=== PATIENT | male | born 1990 | race Caucasian/White ===

== ENCOUNTER 2020-04-05 17:47 | Emergency (ER) | payer BC, SELFPAY ==
[2020-04-05 17:53] VITALS: BP 134/72; PULSE 70; RESP 20; TEMP 36.8; O2SAT 99; BMI 34.9
--- NOTE | 2020-04-05 17:57 | CT_ITS ---
PROCEDURE: CT LUMBAR SPINE WO CON CLINICAL HISTORY: pain midline L1 down Low back pain. Injury with pain COMPARISON: No exams were available for comparison TECHNIQUE: Axial images obtained with sagittal and coronal reformats. All CT scans at the facility use one or more dose reduction, viz: automated exposure control, ma/kV adjustment per patient size (including targeted exams where dose is matched to indication, i.e. head), or iterative reconstruction technique. FINDINGS: There is normal alignment. There is mild acute wedge compression fracture T12 inferior endplate. The superior endplate is not included on the images. No obvious retropulsion. There is loss of height anteriorly of T12 of approximately 25-30 percent as seen on the sports therapist view. L1-L2: Unremarkable. L2-L3: Bulging disc. L3-L4: Mild bulging disc with facet ligamentum hypertrophy. L4-5: Bulging disc with facet ligamentum hypertrophy with canal stenosis with bilateral lateral recess narrowing. L5-S1: Mild bulging disc. IMPRESSION: 1. Acute compression fracture of the inferior endplate of T12 with loss of height anteriorly of approximately 30 percent and no obvious retropulsion. MRI may provide further evaluation. 2. Bulging disc at from L2-S1 with facet hypertrophy with canal stenosis at L4-5. Dictated by: Doc Jesus MD 04/06/2020 06:34 Doc Jesus MD in [place] 04/06/2020 06:34
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
[2020-04-05 18:49] VITALS: BP 129/80; PULSE 96; RESP 18; TEMP 36.7; O2SAT 100
== END 2020-04-05 18:53 | disposition home or self-care (01) ==
PROVIDERS: Emergency Provider Emergency Medicine; PCP Internal Medicine
DX: S32.018A Other fracture of first lumbar vertebra, initial encounter for closed fracture (principal); W30.89XA Contact with other specified agricultural machinery, initial encounter; Y92.017 Garden or yard in single-family (private) house as the place of occurrence of the external cause; Z88.0 Allergy status to penicillin
CPT/HCPCS: 72131; 96372; 99282

== ENCOUNTER 2021-01-28 22:47 | Emergency (ER) | payer BC, SELFPAY ==
[2021-01-28 22:48] VITALS: BP 155/83; PULSE 73; RESP 18; TEMP 36.9; O2SAT 97; BMI 30.4
--- NOTE | 2021-01-28 22:58 | CT_ITS ---
PROCEDURE INFORMATION: Exam: CT Abdomen And Pelvis With Contrast Exam date and time: 01/28/2021 10:58 PM Age: 30 years old Clinical indication: Vomiting and other: Diarrhea; Abdominal pain; Localized; Right; Patient HX: Ruq painwith v/d for 1 week TECHNIQUE: Imaging protocol: Computed tomography of the abdomen and pelvis with contrast. Radiation optimization: All CT scans at this facility use at least one of these dose optimization techniques: automated exposure control; mA and/or kV adjustment per patient size (includes targeted exams where dose is matched to clinical indication); or iterative reconstruction. Contrast material: ISOVUE; Contrast volume: 75 ml; Contrast route: IV; COMPARISON: CR PELAP PELVIS AP ONLY 01/11/2015 4:28 PM FINDINGS: Liver: Normal. Gallbladder and bile ducts: Normal. Pancreas: Normal. Spleen: Splenic calcifications, compatible with prior granulomatous disease. Adrenal glands: Normal. No mass. Kidneys and ureters: Simple right renal cyst, for which no further evaluation is necessary. Stomach and bowel: Few loops of nondilated, gas and fluid-filled small bowel, which is a nonspecific finding, but can be seen with enteritis. Appendix: Appendix normal. Intraperitoneal space: Unremarkable. No free air. No significant fluid collection. Vasculature: Unremarkable. No abdominal aortic aneurysm. Lymph nodes: Unremarkable. No enlarged lymph nodes. Urinary bladder: Unremarkable as visualized. Reproductive: Unremarkable as visualized. Bones/joints: No acute abnormality. Soft tissues: Normal. IMPRESSION: Few loops of nondilated, gas and fluid-filled small bowel, which is a nonspecific finding, but can be seen with enteritis. COMMENTS: Consistent with the [employer]'s Incidental Findings Committee white paper (J Am Talib Radiol 2018): Any incidental renal lesion less than 1 cm or classified as too small to characterize, or any incidental cystic renal lesion characterized as simple-appearing, is likely benign. No follow-up imaging is recommended for these lesions per consensus recommendations based on imaging criteria.
[2021-01-28 23:00] VITALS: BP 161/81; PULSE 77; O2SAT 97
[2021-01-28 23:05] LABS: Basophils % 0.5 % (0.1-2.0); Eosinophils # 0.1 K/mm3 (0.0-0.4); Eosinophils % 1.7 % (0.1-12.0); Hematocrit 46.7 % (42.0-52.0); Hemoglobin 15.8 g/dL (14.1-18.0); Lymphocytes # 1.4 K/mm3 (0.7-4.5); Lymphocytes % 20.7 % (10-50); Mean Corpuscular HGB Conc 33.9 g/dL (31.8-35.4); Mean Corpuscular Hemoglobin 26.8 pg (27.0-31.2); Mean Corpuscular Volume 79.2 fl (80-94); Monocytes # 0.6 K/mm3 (0.1-1.0); Monocytes % 9.6 % (1.7-9.3); Neutrophils # 4.4 K/mm3 (1.8-7.8); Neutrophils % 67.5 % (37.0-80.0); Platelet Count 162 K/mm3 (142-424); Red Blood Count 5.89 M/mm3 (4.60-6.20); Red Cell Distribution Width 13.9 % (11.5-17.5); White Blood Count 6.5 K/mm3 (4.8-10.8)
[2021-01-28 23:10] LABS: Alanine Aminotransferase 29 U/L (12-78); Albumin Level 4.5 g/dl (3.5-5.0); Albumin/Globulin Ratio 1.6 (1.1-1.8); Alkaline Phosphatase 90 U/L (38-126); Amylase 42 U/L (30-110); Anion Gap 11.3 mEq/L (5-15); Aspartate Amino Transferase 39 U/L (17-59); Bilirubin,Total 0.7 mg/dl (0.2-1.3); Blood Urea Nitrogen 17 mg/dl (9-20); Calcium 8.7 mg/dl (8.4-10.2); Carbon Dioxide 28 mmol/L (22.0-30.0); Chloride 103 mmol/L (98-107); Creatinine Clearance Estimated 144 mL/min (50-200); Estimated Glomerular Filt Rate 71 ml/min (>60); GFR (African American) 86 ML/MIN (>60); Globulin 2.9 g/dL (1.3-3.2); Glucose 94 mg/dl (74-100); Lipase 67 U/L (23-300); Potassium 3.3 mmoL/L (3.5-5.1); Sodium 139 mmol/L (136-145); Total Protein,Serum 7.4 g/dl (6.3-8.2)
[2021-01-28 23:16] LABS: C-Reactive Protein 12.7 mg/L (0-4)
--- NOTE | 2021-01-28 23:20 | HMH.EDNVD ---
ED Disposition Clinical Impression: Enteritis Disposition: Home, Self-Care Condition on Discharge: Good Instructions: DI for Acute Abdominal Pain Additional Instructions: fluids and see pcp for follow up Referrals: Van Aldana [Primary Care Provider] - Forms: Work/School Release - Critical Care Critical Care Time: No Attestation: On 01/28/21, the high probability of a clinically significant, sudden or life threatening deterioration of the following system(s) required my full and direct attention, intervention and personal management. The time I documented below is in addition to time spent performing reported procedures but includes the following listed in this critical care notation. Medical Decision Making - Medical Records Medical records reviewed: Yes: I reviewed the patient's medical records. - Allen Inquiry Pt receiving controlled substance: No Vital Signs: 01/28/21 22:48 01/28/21 23:00 01/28/21 23:53 Temperature 98.4 F Temperature Source Oral Pulse Rate 77 67 Pulse Rate [Right] 73 Respiratory Rate 18 Blood Pressure 161/81 H 125/63 Blood Pressure [Right Arm] 155/83 H Blood Pressure Mean [Right Arm] 107 Blood Pressure Source Automatic Cuff Blood Pressure Position Supine 02 Sat by Pulse Oximetry 97 97 96 Oxygen Delivery Method Room Air 01/29/21 00:30 01/29/21 00:45 01/29/21 01:00 Temperature Temperature Source Pulse Rate 62 71 67 Pulse Rate [Right] Respiratory Rate Blood Pressure 126/58 L 122/75 131/66 Blood Pressure [Right Arm] Blood Pressure Mean [Right Arm] Blood Pressure Source Blood Pressure Position 02 Sat by Pulse Oximetry 95 97 96 Oxygen Delivery Method - Lab Data Lab results reviewed: Yes: I reviewed the patient's lab results. Lab Results 01/28/21 22:50: WBC 6.5, RBC 5.89, Hgb 15.8, Hct 46.7, MCV 79.2 L, MCH 26.8 L, MCHC 33.9, RDW 13.9, Plt Count 162, MPV 7.0 L, Neut % (Auto) 67.5, Lymph % (Auto) 20.7, Fisher % (Auto) 9.6 H, Eos % (Auto) 1.7, Baso % (Auto) 0.5, Neut # (Auto) 4.4, Lymph # (Auto) 1.4, Fisher # (Auto) 0.6, Eos # (Auto) 0.1, Baso # (Auto) 0.0 01/28/21 22:50: Sodium 139, Potassium 3.3 L, Chloride 103, Carbon Dioxide 28, Anion Gap 11.3, BUN 17, Creatinine 1.20, Estimated Creat Clear 144, Estimated GFR 71, Est GFR ( Amer) 86, Glucose 94, Calcium 8.7, Total Bilirubin 0.7, AST 39, ALT 29, Alkaline Phosphatase 90, C-Reactive Protein 12.7 H, Total Protein 7.4, Albumin 4.5, Globulin 2.9, Albumin/Globulin Ratio 1.6, Amylase 42, Lipase 67 01/28/21 22:50: ESR 4 01/28/21 22:50: Procalcitonin 0.135 Result diagrams: 01/28/21 22:50 01/28/21 22:50 Orders (Tests/Meds): ED MEDICATIONS Generic Name Dose Route Start Last Admin Trade Name Freq PRN Reason Stop Dose Admin Sodium Chloride 1,000 mls @ 999 mls/hr 01/28/21 23:00 01/28/21 23:02 Sod Chlor 0.9% 1000ml Bag IV 01/29/21 00:00 999 mls/hr .Q1H1M AKASH Administration Sodium Chloride 8 ml 01/28/21 22:59 Sodium Chloride 0.9% 10ml Vial IV 02/27/21 22:58 NEEDED PRN dilute pepcid Discontinued Medications Generic Name Dose Route Start Last Admin Trade Name Freq PRN Reason Stop Dose Admin Famotidine 20 mg 01/28/21 22:59 01/28/21 23:02 Famotidine 20mg/2ml Vial IV 01/28/21 23:00 20 mg ONCE ONE Administration Iopamidol 75 ml 01/28/21 23:47 01/28/21 23:47 Iopamidol-370 (76%);100ml Bottle IV 01/28/21 23:48 75 ml ONCE ONE Administration Ketorolac Tromethamine 30 mg 01/28/21 23:03 01/28/21 23:05 Ketorolac 30mg/Ml Vial IV 01/28/21 23:04 30 mg ONCE ONE Administration Metoclopramide HCl 10 mg 01/28/21 22:59 01/28/21 23:02 Metoclopramide Hcl 10mg/2ml Vial IVP 01/28/21 23:00 10 mg ONCE ONE Administration Ondansetron HCl 4 mg 01/28/21 22:59 01/28/21 23:02 Ondansetron 4mg/2ml Vial IV 01/28/21 23:00 4 mg ONCE ONE Administration Promethazine HCl 25 mg 01/28/21 23:19 01/28/21 23:40 Prome
[2021-01-28 23:29] LABS: Procalcitonin 0.135 ng/mL (0.0-2.0)
[2021-01-28 23:33] LABS: Erythrocyte Sedimentation Rate 4 mm/hr (0-15)
[2021-01-28 23:53] VITALS: BP 125/63; PULSE 67; O2SAT 96
[2021-01-29 00:30] VITALS: BP 126/58; PULSE 62; O2SAT 95
[2021-01-29 00:45] VITALS: BP 122/75; PULSE 71; O2SAT 97
[2021-01-29 01:00] VITALS: BP 131/66; PULSE 67; O2SAT 96
[2021-01-29 01:48] VITALS: BP 124/78; PULSE 71; RESP 16; TEMP 36.7; O2SAT 97
== END 2021-01-29 01:49 | disposition home or self-care (01) ==
PROVIDERS: Emergency Provider Emergency Medicine; PCP Internal Medicine
DX: K52.9 Noninfective gastroenteritis and colitis, unspecified (principal); F17.210 Nicotine dependence, cigarettes, uncomplicated
CPT/HCPCS: 74177; 80053; 82150; 83690; 84145; 85025; 85651; 86140; 96365; 96375; 99282; J2405; Q9967

== ENCOUNTER 2021-04-07 16:02 | Emergency (ER) | payer BC, SELFPAY ==
[2021-04-07 16:03] VITALS: BP 131/78; PULSE 84; RESP 16; TEMP 36.9; O2SAT 99; BMI 26.2
[2021-04-07 16:46] VITALS: BP 131/78; PULSE 84; RESP 16; TEMP 36.9; O2SAT 99
--- NOTE | 2021-05-27 11:14 | HMH.EDUTC ---
[facility] [place]: Rash Disposition: Home, Self-Care Condition on Discharge: Good Instructions: DI for Rash Additional Instructions: Keep the affected area clean and dry. Follow up with your regular doctor. Use the medication as directed. GO TO THE ER FOR ANY WORSENING SYMPTOMS Prescriptions: Clobetasol Propionate 1 applicatio TP BID 10 Days #1 tube Transmission Status: Received by [id number] methylPREDNISolone [Medrol] 4 mg PO DIRECTED 6 Days #21 tab.ds.pk Transmission Status: Received by [id number] Referrals: Dianne Nazario APRN [Primary Care Provider] - Time of Disposition: 18:00 Medical Decision Making - Medical Records Medical records reviewed: No: I reviewed the patient's medical records. - Allen Inquiry Pt receiving controlled substance: No Vital Signs: 04/07/21 16:03 04/07/21 16:46 Temperature 98.4 F 98.4 F Temperature Source Oral Oral Pulse Rate 84 Pulse Rate [Right] 84 Respiratory Rate 16 16 Blood Pressure 131/78 Blood Pressure [Right Arm] 131/78 Blood Pressure Mean [Right Arm] 95 02 Sat by Pulse Oximetry 99 [facility] [place] - General Stated complaint: RASH ON BACK Time Seen by Provider: 04/07/21 16:30 Description of Symptoms (Recalled from Triage Doc. by RN): rash on back HEENT Symptoms (Recalled from RN notes): No Resp Symptoms (Recalled from RN notes): No Skin Symptoms (Recalled from RN notes): Yes MS Symptoms (Recalled from RN notes): No Functional Status (Recalled from RN notes): na - History of Present Illness Provider Complaint: She is here with c/o of having a rash on her back. - Related Data Previous Rx's Medication Instructions Recorded Clobetasol Propionate 1 applicatio TP BID 10 Days #1 tube 04/07/21 methylPREDNISolone [Medrol] 4 mg PO DIRECTED 6 Days #21 04/07/21 tab.ds.pk Allergies Allergy/AdvReac Type Severity Reaction Status Date / Time Penicillins Allergy Verified 01/27/18 17:42 - Worker's Comp Is this a Worker's Comp case?: No [facility] History - Hepatitis A Screen Drug use history?: No High risk sexual behaviors?: No History of sexually transmitted infection?: No Currently employed?: No Childcare worker?: No Do you have indoor plumbing?: Yes Do you have electricity?: Yes Attestation statement:: This patient has been screened for Hepatitis A risk factors. I have reviewed the patient's past medical history: Yes Medical History: Denies:: Cancer, Diabetes Mellitus Type 1, Diabetes Mellitus Type 2, MRSA Laterality Cases: Bilateral: Tonsillectomy Amputation: No - Social History Smoking Status: Current every day smoker Tobacco Type: cigarettes Alcohol Intake: never Occupational Status: employed Housing: house ROS Obtained: Yes All systems reviewed & no additional complaints - Constitutional Constitutional: Denies chills, Denies fever(s) - Eyes Eyes: Denies eye discharge, Denies itchy eyes - ENT Ears, Nose, Mouth, and Throat: Denies dizziness, Denies otalgia, Denies sore throat - Cardiovascular Cardiovascular: Denies chest pain - Respiratory Respiratory: Denies chest congestion, Denies cough, Denies dyspnea, Denies stridor, Denies wheezing - Gastrointestinal Gastrointestingal: Denies: abdominal pain, diarrhea, nausea, vomiting - Musculoskeletal Musculoskeletal: Denies joint pain - Integumentary/Breasts Skin/Breast: Reports as per HPI, Reports rash Physical Exam - General General appearance: alert, in no apparent distress - Head Head exam: atraumatic, normocephalic, normal inspection - Eye Eye exam: Present: normal appearance, PERRL, EOMI - ENT ENT exam: Present: normal exam, normal oropharynx, mucous membranes moist, TM's normal bilaterally, normal external ear exam - Neck Neck exam: Present: normal inspection, full ROM, trachea midline. Absent: meningismus, lymphadenopathy - Chest Chest inspection: Present: normal inspection, symm
== END 2021-04-07 16:48 | disposition home or self-care (01) ==
LOC: UTC 16:06
PROVIDERS: Emergency Provider Nurse Practitioner Family; PCP Nurse Practitioner Family
DX: R21 Rash and other nonspecific skin eruption (principal)
CPT/HCPCS: 99202; G0463

== ENCOUNTER 2021-08-08 11:45 | Emergency (ER) | payer BC, SELFPAY ==
[2021-08-08 13:05] VITALS: BP 142/82; PULSE 101; RESP 18; TEMP 37.2; O2SAT 98; BMI 33.0
[2021-08-08 13:28] LABS: UTC Influenza A Antigen Negative (Negative); UTC Influenza B Antigen Negative (Negative)
--- NOTE | 2021-08-08 13:38 | HMH.EDUTC ---
[facility] – [place] Dis[place] Clinical Impression: Vomiting and diarrhea Disposition: Home, Self-Care Condition on Discharge: Good Instructions: Diarrhea, Nausea and Vomiting-Adult, Ondansetron, DI for COVID-19 (Suspected or Confirmed ), Preventing the Spread of Coronavirus Discharge Instructions Additional Instructions: Drink extra fluids with and between meals. If you have difficulty drinking, try very small amounts of water or suck on ice chips. ? Avoid fruit juices, as these do not replace minerals and can actually increase diarrhea. ? Children and adults can use sports drinks to replenish electrolytes. Younger children and infants should use products formulated for children, like oral rehydration solutions. ? Eat food in small amounts and let your stomach recover. ? Get lots of rest. You may feel tired or weak. ? No greasy or fried foods for the next 24-48 hours BRAT diet Bananas Rice Apples and Ozora ? Make sure to drink plenty of liquids ? Return if needed ? Straight to ER if any life threatening symptoms ? Zofran as prescribed ? You was given an outpatient order for diarrhea panel, please collect specimen and bring back to outpatient lab then call back to the [facility] or follow up with family doctor for results ? Follow up with family doctor in the next 48-72 hours if no improvement or any worsening of symptoms You were tested for today for Upper Respiratory panel with COVID19 your test result should be back in the next 24-48 hours, you Check your results on the [facility] [employer] [facility] for your COVID test results if you have trouble logging on you may call You was given a handout with instructions for Self Quarantine and Self isolation for while you wait on test results and what to do if they are positive If you are positive the Health Dept will be contacting you also Make sure to take your Vitamins Vit. C Vit D and Zinc if you can take them Prescriptions: Ondansetron [Zofran 4mg ODT] 4 mg PO TIDP PRN #20 tab PRN Reason: Nausea Transmission Status: Received by [id number] Referrals: Dianne Nazario APRN [Primary Care Provider] - As needed Forms: Work/School Release Medical Decision Making - Allen Inquiry Pt receiving controlled substance: No Allen was queried for this patient: No Vital Signs: 08/08/21 13:05 08/08/21 14:15 Temperature 99.0 F 99.0 F Temperature Source Oral Pulse Rate 101 H Pulse Rate [Right Brachial] 101 H Respiratory Rate 18 18 Blood Pressure 142/82 H Blood Pressure [Right Arm] 142/82 H Blood Pressure Mean [Right Arm] 102 Blood Pressure Source [Right Arm] Automatic Cuff Blood Pressure Position [Right Arm] Sitting 02 Sat by Pulse Oximetry 98 Oxygen Delivery Method Room Air - Lab Data Lab Results 08/08/21 13:05: Influenza Type A Ag Negative, Influenza Type B Ag Negative Orders (Tests/Meds): ED MEDICATIONS Discontinued Medications Generic Name Dose Route Start Last Admin Trade Name Freq PRN Reason Stop Dose Admin Ondansetron HCl 4 mg 08/08/21 13:45 08/08/21 13:50 Ondansetron 4mg Odt SL 08/08/21 13:46 4 mg ONCE ONE Administration [facility] [place] HPI - General Stated complaint: vomiting, diarrhea Time Seen by Provider: 08/08/21 13:38 Mode of Arrival: Ambulatory Source of Information: Patient Limitations: No Limitations Description of Symptoms (Recalled from Triage Doc. by RN): PATIENT C/O VOMITING, DIARRHEA, AND WEAKNESS SINCE 0300 THIS AM HEENT Symptoms (Recalled from RN notes): No Resp Symptoms (Recalled from RN notes): No Skin Symptoms (Recalled from RN notes): No MS Symptoms (Recalled from RN notes): No Functional Status (Recalled from RN notes): WNL - History of Present Illness Provider Complaint: Patient state that his kids have had a stomach virus, States that he has been having vomiting, diarrhea, body aches and chills States that he hasnt been able to keep anything down so this evening when he was still having vomiting and diarrhea he came in to get c
[2021-08-08 14:15] VITALS: BP 142/82; PULSE 101; RESP 18; TEMP 37.2; O2SAT 98
== END 2021-08-08 14:18 | disposition home or self-care (01) ==
PROVIDERS: Emergency Provider Nurse Practitioner; PCP Nurse Practitioner Family
DX: Z20.822 Contact with and (suspected) exposure to COVID-19 (principal); R11.10 Vomiting, unspecified; R19.7 Diarrhea, unspecified
CPT/HCPCS: 87804; 99202; C9803; G0463; U0003; U0005

== ENCOUNTER 2022-08-25 20:00 | Emergency (ER) | payer BC, SELFPAY ==
[2022-08-25 20:01] VITALS: BP 135/86; PULSE 103; RESP 16; TEMP 36.4; O2SAT 97; BMI 29.9
[2022-08-25 20:05] VITALS: BP 135/86; PULSE 108; O2SAT 97
--- NOTE | 2022-08-25 20:08 | CT_ITS ---
PROCEDURE INFORMATION: Exam: CT Abdomen And Pelvis With Contrast Exam date and time: 08/25/2022 8:36 PM Age: 32 years old Clinical indication: Abdominal pain; Additional info: Abd pain TECHNIQUE: Imaging protocol: Computed tomography of the abdomen and pelvis with contrast. Radiation optimization: All CT scans at this facility use at least one of these dose optimization techniques: automated exposure control; mA and/or kV adjustment per patient size (includes targeted exams where dose is matched to clinical indication); or iterative reconstruction. Contrast material: ISOVUE; Contrast volume: 75 ml; Contrast route: IV; COMPARISON: CT ABDOMEN PELVIS W CON 01/28/2021 11:25 PM FINDINGS: Lungs: There has been interval increase in size of 2 right middle lobe pulmonary nodules, the larger measuring 14 mm in the smaller measuring 9 mm on the current study (previously 10 and 5 mm respectively). Lower lungs are otherwise clear. Liver: Normal. No mass. Gallbladder and bile ducts: Normal. No calcified stones. No ductal dilation. Pancreas: Normal. No ductal dilation. Spleen: Normal. No splenomegaly. Adrenal glands: Normal. No mass. Kidneys and ureters: Normal. No hydronephrosis. Stomach and bowel: There is diffuse wall thickening of multiple small bowel loops throughout the right side of the abdomen compatible with enteritis. Bowel loops are normal in caliber, with no evidence of obstruction. Appendix: No evidence of appendicitis. Intraperitoneal space: Unremarkable. No free air. No significant fluid collection. Vasculature: Unremarkable. No abdominal aortic aneurysm. Lymph nodes: 4 cm soft tissue mass compatible with lymphadenopathy noted in the subcarinal region of the mediastinum. There is also mild bilateral hilar lymphadenopathy in the visualized portion of the lower chest. Urinary bladder: Unremarkable as visualized. Reproductive: Unremarkable as visualized. Bones/joints: Unremarkable. No acute fracture. Soft tissues: Unremarkable. IMPRESSION: 1. Diffuse small bowel wall thickening compatible with enteritis throughout the right abdomen. No evidence of bowel obstruction 2. Interval increase in size of 2 right middle lobe pulmonary nodules as well as evidence of bilateral hilar and mediastinal lymphadenopathy in the chest. Findings raise concern for malignancy of indeterminate origin. Dedicated CT chest indicated for further evaluation.
[2022-08-25 20:42] LABS: Basophils # 0.1 K/mm3 (0-0.2); Basophils % 0.6 % (0.1-2.0); Eosinophils # 0.2 K/mm3 (0.0-0.4); Eosinophils % 1.8 % (0.1-12.0); Hemoglobin 17.4 g/dL (14.1-18.0); Lymphocytes # 1.2 K/mm3 (0.7-4.5); Lymphocytes % 9.4 % (10-50); Mean Corpuscular HGB Conc 32.8 g/dL (31.8-35.4); Mean Corpuscular Hemoglobin 27.6 pg (27.0-31.2); Mean Corpuscular Volume 84.2 fl (80-94); Mean Platelet Volume 7.2 fl (7.4-10.4); Monocytes # 0.7 K/mm3 (0.1-1.0); Monocytes % 5.2 % (1.7-9.3); Neutrophils # 10.8 K/mm3 (1.8-7.8); Neutrophils % 83.1 % (37.0-80.0); Platelet Count 287 K/mm3 (142-424); Red Cell Distribution Width 13.9 % (11.5-17.5)
--- NOTE | 2022-08-25 21:10 | HMH.EDABDPAI ---
Discharge Plan Disposition Patient Disposition: Home, Self-Care Chief Complaint: Abdominal Pain Prescriptions Prescriptions: No Action methylprednisolone 4 MG tablets,dose pack 4 mg PO DIRECTED 6 Days Qty: 21 0RF clobetasol 15 GM ointment 1 applicatio TP BID 10 Days Qty: 1 0RF Rx Instructions: apply bid to the plaque on your back. Stop this medication once the plaque is getting better or 10 days are up. Don't put on face. ondansetron 4 MG tablet,disintegrating 4 mg PO TIDP PRN (Reason: Nausea) Qty: 20 0RF Referrals Follow up/Referrals: Dianne Nazario APRN [Primary Care Provider] - See instructions Clinical Impressions Clinical Impression: Enteritis due to Norovirus Instructions Patient Instructions: DI for Norovirus Infection Discharge ED Provider: Armando Yan Abdominal Pain HPI General Chief Complaint: Abdominal Pain Stated Complaint: stomach pain Time Seen by Provider: 08/25/22 21:10 Mode of Arrival: Ambulatory Source of Information: Patient and Medical Record Limitations: No Limitations Description of Symptoms (Recalled from ER Triage Doc. by RN): pt c/o epipastric pain with n/v/d that started a couple of days ago History of Present Illness HPI narrative: acute progressive abd pain with nausea and vomiting and diarrhea - MD complaint: abdominal pain Onset (ago): day(s) Consistency: constant Location: epigastric Severity: moderate Quality: sharp Associated symptoms: denies other symptoms Related Data Previous Rx's Medication Instructions Recorded clobetasol 0.05 % topical ointment 1 applicatio TP BID 10 days #1 tube 04/07/21 methylprednisolone 4 mg tablets in 4 mg PO DIRECTED 6 days ##21 04/07/21 a dose pack ondansetron 4 mg disintegrating 4 mg PO TIDP PRN Nausea #20 tabs 08/08/21 tablet Allergies Allergy/AdvReac Type Severity Reaction Status Date / Time Penicillins Allergy Verified 01/27/18 17:42 [facility] Disclaimer: The information contained in this section may have been updated after the patient was seen, as this information can be updated by other users. Social History Smoking Status: Never smoker alcohol intake: never current occupational status: other Travel in the last 8 weeks: None housing: house ROS Obtained: Yes All systems reviewed & no additional complaints except as documented Physical Exam General General appearance: alert Head Head exam: normocephalic Eye Eye exam: Present PERRL and EOMI; Absent scleral icterus ENT ENT exam: Present mucous membranes moist Neck Neck exam: Present trachea midline Respiratory Respiratory exam: Present normal lung sounds bilaterally; Absent respiratory distress Cardiovascular Cardiovascular exam: Present regular rate Abdominal Exam Abdominal exam: Present soft and tenderness; Absent guarding, rebound or rigidity Abdominal tenderness: Present epigastrium and moderate Extremities Exam Extremities exam: Present full ROM Neurological Exam Neurological exam: Present alert, oriented X3 and CN II-XII intact; Absent motor sensory deficit Skin Skin exam: Absent rash Medical Decision Making Medical Records Medical records reviewed: Yes I reviewed the patient's medical records. [place] Inquiry Pt receiving controlled substance: No Vital Signs: 08/25/22 20:01 08/25/22 20:05 08/26/22 00:39 Temperature 97.6 F 97.6 F Temperature Source Oral Oral Pulse Rate 108 H 88 Pulse Rate [Right] 103 H Respiratory Rate 16 16 Blood Pressure 135/86 124/78 Blood Pressure [Right Arm] 135/86 Blood Pressure Mean [Right Arm] 102 02 Sat by Pulse Oximetry 97 97 Lab Data Lab results reviewed: Yes I reviewed the patient's lab results. Lab Results 08/25/22 20:15: WBC 13.0 H, RBC 6.30 H, Hgb 17.4, Hct 53.0 H, MCV 84.2, MCH 27.6, MCHC 32.8, RDW 13.9, Plt Count 287, MPV 7.2 L, Neut % (Auto) 83.1 H, Lymph % (Auto) 9.4 L, [place] % (Auto) 5.2, Eos % (Auto) 1.8, Baso % (Auto) 0.6, Neut # (
[2022-08-25 21:16] LABS: Chloride 103 mmol/L (98-107); Sodium 141 mmol/L (136-145)
[2022-08-25 21:17] LABS: Potassium 4.5 mmoL/L (3.5-5.1)
[2022-08-25 21:19] LABS: Alanine Aminotransferase 59 U/L (12-78); Alkaline Phosphatase 100 U/L (38-126); Amylase 75 U/L (30-110); Anion Gap 13.5 mEq/L (5-15); Aspartate Amino Transferase 47 U/L (17-59); Bilirubin,Total 0.6 mg/dl (0.2-1.3); Blood Urea Nitrogen 14 mg/dl (9-20); Calcium 9.4 mg/dl (8.4-10.2); Carbon Dioxide 29 mmol/L (22.0-30.0); Creatinine Clearance Estimated 163 mL/min (50-200); Estimated Glomerular Filt Rate 87 ml/min (>60); GFR (African American) 105 ML/MIN (>60); Glucose 100 mg/dl (74-100); Lipase 178 U/L (23-300)
[2022-08-25 21:20] LABS: Albumin Level 4.9 g/dl (3.5-5.0); Albumin/Globulin Ratio 1.3 (1.1-1.8); Globulin 3.7 g/dL (1.3-3.2); Total Protein,Serum 8.6 g/dl (6.3-8.2)
--- NOTE | 2022-08-25 21:29 | CT_ITS ---
PROCEDURE INFORMATION: Exam: CT Chest Without Contrast; Diagnostic Exam date and time: 08/25/2022 9:44 PM Age: 32 years old Clinical indication: Abnormal findings; Abnormal radiologic exam of lung or chest; Additional info: Epigastric pain TECHNIQUE: Imaging protocol: Diagnostic computed tomography of the chest without contrast. Radiation optimization: All CT scans at this facility use at least one of these dose optimization techniques: automated exposure control; mA and/or kV adjustment per patient size (includes targeted exams where dose is matched to clinical indication); or iterative reconstruction. COMPARISON: CR XR CHEST 2V 08/25/2022 9:30 PM FINDINGS: Lungs: There are 3 noncalcified pulmonary nodules including an 8 mm nodule in the posterolateral left lung base as well as a 12 mm nodule and 8 mm nodule in the right middle lobe. 6 mm calcified granuloma noted in the right lung apex. Lungs are otherwise clear. No active infiltrate seen. Pleural spaces: Unremarkable. No pneumothorax. No pleural effusion. Heart: Unremarkable. No cardiomegaly. No pericardial effusion. No coronary artery calcification. Lymph nodes: There is diffuse bilateral hilar and mediastinal lymphadenopathy with partially calcified lymph nodes seen in the right paratracheal region. Vasculature: Unremarkable. No aortic aneurysm. Bones/joints: Unremarkable. No acute fracture. Soft tissues: Unremarkable. IMPRESSION: Three noncalcified pulmonary nodules noted as described, 2 in the right middle lobe and 1 in the left lower lobe. Hilar and mediastinal lymphadenopathy also noted, with some lymph nodes exhibiting partial calcification. There is also a 6 mm calcified granuloma in the right lung apex. This suggests these findings may all be due to old granulomatous disease but active malignancy not excluded. For patients at low risk (minimal or absent history of smoking and of other known risk factors), recommend CT Chest at 3-6 months, then consider CT Chest at 18-24 months. For patients at high risk (history of smoking or of other known risk factors), recommend CT Chest at 3-6 months, then CT Chest at 18-24 months. (Reference: Laura) References: Laura Mensah et al. Guidelines for Management of Incidental Pulmonary Nodules Detected on CT Images: From the Fleischner Society 2017. Radiology. 2017;284(1):228-243.
--- NOTE | 2022-08-25 21:30 | XR_ITS ---
PROCEDURE INFORMATION: Exam: XR Chest Exam date and time: 08/25/2022 9:30 PM Age: 32 years old Clinical indication: Other: Pain; Additional info: Epigastric TECHNIQUE: Imaging protocol: Radiologic exam of the chest. Views: 2 views. COMPARISON: CT ABDOMEN PELVIS W CON 08/25/2022 8:36 PM FINDINGS: Lungs: Unremarkable. No consolidation. Pleural spaces: Unremarkable. No pleural effusion. No pneumothorax. Heart/Mediastinum: Unremarkable. No cardiomegaly. Bones/joints: Unremarkable. IMPRESSION: No acute findings.
--- NOTE | 2022-08-25 21:40 | PC.NURSE ---
pt out of room with RAD @ this time.
--- NOTE | 2022-08-25 21:46 | PC.NURSE ---
pt back to room @ this time.
[2022-08-25 21:47] LABS: C-Reactive Protein 3.4 mg/L (0-4)
[2022-08-25 21:57] LABS: Microscopic, Urine URINE MICROSCOPIC (MICROSCOPIC)
[2022-08-25 22:05] LABS: Adenovirus F 40/41, stool Not Detected (NotDetected); Astrovirus Not Detected (NotDetected); Campylobacter Not Detected (NotDetected); Clostridium Difficile A/B, PCR Not Detected (NotDetected); Cryptosporidium Not Detected (NotDetected); Cyclospora Cayetanesis Not Detected (NotDetected); Entamoeba histolytica Not Detected (NotDetected); Enteroaggregative E coli Not Detected (NotDetected); Enteropathogenic E coli Not Detected (NotDetected); Enterotoxigenic E coli Not Detected (NotDetected); Giardia lamblia Not Detected (NotDetected); Plesimonas Shigalloides, PCR Not Detected (NotDetected); Rotavirus A Not Detected (NotDetected); Salmonella, PCR Not Detected (NotDetected); Sapovirus Not Detected (NotDetected); Shiga-like toxin E coli Not Detected (NotDetected); Shigella Enterovasive E coli Not Detected (NotDetected); Vibrio Cholerae Not Detected (NotDetected); Vibrio, PCR Not Detected (NotDetected); Yersinia Entercolitica, PCR Not Detected (NotDetected)
[2022-08-25 22:17] LABS: Erythrocyte Sedimentation Rate 3 mm/hr (0-15)
[2022-08-25 22:32] LABS: Appearance,Urine CLEAR (Clear); Bilirubin,Urine Negative (Negative); Blood, Urine Negative (Negative); Color,Urine YELLOW (Yellow); Glucose,Urine (UA) Negative (Negative); Ketones,Urine Negative (Negative); Leukocyte Esterase,Urine Negative (Negative); Nitrate,Urine Negative (Negative); Protein,Urine Negative (Negative); Urobilinogen,Urine 0.2 EU/dl (0.2)
[2022-08-26 00:25] LABS: Norovirus Detected (NotDetected)
[2022-08-26 00:39] VITALS: BP 124/78; PULSE 88; RESP 16; TEMP 36.4; O2SAT 97
== END 2022-08-26 00:46 | disposition home or self-care (01) ==
PROVIDERS: Emergency Provider Emergency Medicine; PCP Nurse Practitioner Family
DX: A08.11 Acute gastroenteropathy due to Norwalk agent (principal); R10.13 Epigastric pain
CPT/HCPCS: 71046; 71250; 74177; 80053; 81001; 82150; 83690; 85025; 85651; 86140; 87507; 96361; 96374; 96375; 99285; J2405; Q9967

== ENCOUNTER 2023-06-07 12:58 | Emergency (ER) | payer BC, SELFPAY ==
[2023-06-07 12:59] VITALS: BP 131/79; PULSE 110; RESP 20; TEMP 37.1; O2SAT 99; BMI 33.1
--- NOTE | 2023-06-07 13:38 | EXP.UTC ---
Discharge Plan Disposition Patient Disposition: Home, Self-Care Condition: Good Prescriptions Prescriptions: New hydroxyzine pamoate [Vistaril] 25 mg capsule 25 mg PO TID PRN (Reason: anxiety) Qty: 20 0RF No Action methylprednisolone 4 MG tablets,dose pack 4 mg PO DIRECTED 6 Days Qty: 21 0RF clobetasol 15 GM ointment 1 applicatio TP BID 10 Days Qty: 1 0RF Rx Instructions: apply bid to the plaque on your back. Stop this medication once the plaque is getting better or 10 days are up. Don't put on face. ondansetron 4 MG tablet,disintegrating 4 mg PO TIDP PRN (Reason: Nausea) Qty: 20 0RF Referrals Follow up/Referrals: Murphy Telles DO [Staff Physician] - 06/08/23 9:00 am Provider,Referral, [Primary Care Provider] - See instructions Activity Restrictions/Add. Instructions Additional Instructions/Restrictions: Go straight to the ER if you experience chest pain, palpations, or any life threatening symptoms Follow up as scheduled tomorrow with Dr Telles Return if needed Clinical Impressions Clinical Impression: Borderline blood pressure Stand Alone Forms Stand Alone Forms: Work/School Release Instructions Patient Instructions: Recommendations to Help Prevent High Blood Pressure, Blood Pressure Testing and Measurement, DI for Anxiety -- Adult Discharge ED Provider: Brenda Hough [facility] General Stated complaint: BP HIGH Mode of Arrival: Ambulatory Source of Information: Patient Limitations: No Limitations Time Seen by Provider: 06/07/23 13:44 Description of Symptoms (Recalled from Triage Doc. by RN): Patient complaint of blood pressure problems, shortness of breath, heart racing, body aches, dizziness, and not being able to sleep since Sunday. HEENT Symptoms (Recalled from RN notes): Yes Resp Symptoms (Recalled from RN notes): No Skin Symptoms (Recalled from RN notes): No MS Symptoms (Recalled from RN notes): No Functional Status (Recalled from RN notes): wnl History of Present Illness Provider Complaint: Patient states that he was recently moved from second shift to first shift and since then he has been having issues with his blood pressure being high at times, not sleeping well, feeling like his heart races at times and feeling a little anxious States that he has never had anxiety before but feels like that is what it is States that he feels fine right now States that also for the last 3-4 days he has been having body aches, chills and flu like symptoms States that work was worried he may have flu or COVID so they tested him yesterday and that was negative Related Data Previous Rx's Medication Instructions Recorded clobetasol 0.05 % topical ointment 1 applicatio TP BID 10 days #1 tube 04/07/21 methylprednisolone 4 mg tablets in 4 mg PO DIRECTED 6 days ##21 04/07/21 a dose pack ondansetron 4 mg disintegrating 4 mg PO TIDP PRN Nausea #20 tabs 08/08/21 tablet hydroxyzine pamoate 25 mg capsule 25 mg PO TID PRN anxiety #20 caps 06/07/23 (Vistaril) Allergies Allergy/AdvReac Type Severity Reaction Status Date / Time Penicillins Allergy Verified 01/27/18 17:42 Worker's Comp Is this a Worker's Comp case?: No [facility] Disclaimer: The information contained in this section may have been updated after the patient was seen, as this information can be updated by other users. Social History Smoking Status: Never smoker alcohol intake: never current occupational status: other Travel in the last 8 weeks: None housing: house ROS Obtained: Yes All systems reviewed & no additional complaints except as documented and Yes Systems reviewed as appropriate & no additional complaints except as documented Constitutional Constitutional: Reports system reviewed and no additional complaints, except as documented, Reports as per HPI, Reports body ache, Reports chills and Reports fatigue ENT Ears, Nose, Mouth, and Throat: Reports system reviewed and no additional co
[2023-06-07 14:14] VITALS: BP 131/79; PULSE 110; RESP 20; TEMP 37.1; O2SAT 99
[2023-06-07 14:18] LABS: Adenovirus,PCR Not Detected (NotDetected); Coronavirus 19, PCR Not Detected (NotDetected); Coronavirus 229E Not Detected (NotDetected); Coronavirus NL63 Not Detected (NotDetected); Coronavirus OC43 Not Detected (NotDetected); Coronovirus HKU1,PCR Not Detected (NotDetected); Human Metapneumovirus Not Detected (NotDetected); Influenza A, PCR Not Detected (NotDetected); Influenza AH1, 2009 Not Detected (NotDetected); Influenza AH1, PCR Not Detected (NotDetected); Influenza AH3,PCR Not Detected (NotDetected); Influenza B, PCR Not Detected (NotDetected); Parainfluenza 1, PCR Not Detected (NotDetected); Parainfluenza 2, PCR Not Detected (NotDetected); Parainfluenza 3, PCR Not Detected (NotDetected); Parainfluenza 4, PCR Not Detected (NotDetected); Respiratory Syncytial Virus Not Detected (NotDetected); Rhinovirus/Enterovirus Not Detected (NotDetected)
== END 2023-06-07 14:15 | disposition home or self-care (01) ==
PROVIDERS: Emergency Provider Nurse Practitioner
DX: R03.0 Elevated blood-pressure reading, without diagnosis of hypertension (principal)
CPT/HCPCS: 87632; 87635; 99212; 99214; G0463

== ENCOUNTER → 2023-06-08 10:05 | Outpatient (CLI) | payer BC, SELFPAY ==
[2023-06-08 14:40] LABS: Basophils % 0.2 % (0.1-2.0); Eosinophils % 0.1 % (0.1-12.0); Hematocrit 44.1 % (42.0-52.0); Hemoglobin 15.1 g/dL (14.1-18.0); Lymphocytes # 0.7 K/mm3 (0.7-4.5); Lymphocytes % 12.9 % (10-50); Mean Corpuscular HGB Conc 34.3 g/dL (31.8-35.4); Mean Corpuscular Hemoglobin 28.3 pg (27.0-31.2); Mean Corpuscular Volume 82.5 fl (80-94); Mean Platelet Volume 8.1 fl (7.4-10.4); Monocytes # 0.5 K/mm3 (0.1-1.0); Monocytes % 9.8 % (1.7-9.3); Neutrophils # 4.2 K/mm3 (1.8-7.8); Neutrophils % 76.8 % (37.0-80.0); Platelet Count 178 K/mm3 (142-424); Red Blood Count 5.34 M/mm3 (4.60-6.20); Red Cell Distribution Width 14.3 % (11.5-17.5); White Blood Count 5.5 K/mm3 (4.8-10.8)
[2023-06-08 15:40] LABS: Erythrocyte Sedimentation Rate 37 mm/hr (0-15)
[2023-06-08 15:44] LABS: Alanine Aminotransferase 32 U/L (12-78); Albumin Level 4.5 g/dl (3.5-5.0); Albumin/Globulin Ratio 1.5 (1.1-1.8); Alkaline Phosphatase 82 U/L (38-126); Anion Gap 17.9 mEq/L (5-15); Aspartate Amino Transferase 40 U/L (17-59); Bilirubin,Total 0.8 mg/dl (0.2-1.3); Blood Urea Nitrogen 12 mg/dl (9-20); Calcium 8.6 mg/dl (8.4-10.2); Carbon Dioxide 26 mmol/L (22.0-30.0); Chloride 97 mmol/L (98-107); Chol/HDL Ratio 5.9 (1-3.5); Cholesterol 136 mg/dl (140-200); Estimated Glomerular Filt Rate 77 ml/min (>60); GFR (African American) 93 ML/MIN (>60); Globulin 3.1 g/dL (1.3-3.2); Glucose 84 mg/dl (74-100); HDL Cholesterol 23 mg/dl (40-60); Potassium 3.9 mmoL/L (3.5-5.1); Sodium 137 mmol/L (136-145); Total Protein,Serum 7.6 g/dl (6.3-8.2); Triglycerides 88 mg/dl (30-150); VLDL Cholesterol 18 mg/dL (0-40)
[2023-06-08 15:58] LABS: C-Reactive Protein 68.8 mg/L (0-4); Direct LDL Cholesterol 91.93 mg/dL (100-129)
[2023-06-08 16:03] LABS: 25-OH Vitamin D, Total 30.9 ng/mL (30-100)
[2023-06-08 16:04] LABS: Free T4 (Free Thyroxine) 0.95 ng/dl (0.78-2.19)
[2023-06-08 16:16] LABS: Thyroid Stimulating Hormone 0.59 uIU/mL (0.465-4.68)
[2023-06-13 13:32] LABS: Antinuclear Antibodies (ANA) NEGATIVE
== END ==
PROVIDERS: PCP Internal Medicine; Visit Provider Internal Medicine
DX: Z00.00 Encounter for general adult medical examination without abnormal findings (principal); Z13.29 Encounter for screening for other suspected endocrine disorder; K52.9 Noninfective gastroenteritis and colitis, unspecified; L40.0 Psoriasis vulgaris; Z13.21 Encounter for screening for nutritional disorder; Z13.1 Encounter for screening for diabetes mellitus; Z13.220 Encounter for screening for lipoid disorders; Z68.32 Body mass index [BMI] 32.0-32.9, adult
CPT/HCPCS: 80053; 80061; 82306; 83036; 84439; 84443; 85025; 85651; 86038; 86140

== ENCOUNTER → 2023-06-26 09:13 | Outpatient (CLI) | payer BC, SELFPAY ==
[2023-06-28 17:29] LABS: Tissue Transglutaminase IgA Ab <2 U/mL (0-3)
== END ==
PROVIDERS: PCP Internal Medicine; Visit Provider Internal Medicine
DX: K52.89 Other specified noninfective gastroenteritis and colitis (principal)
CPT/HCPCS: 83516

== ENCOUNTER → 2023-06-28 16:16 | Outpatient (CLI) | payer BC, SELFPAY ==
[2023-06-28 16:49] LABS: Adenovirus F 40/41, stool Not Detected (NotDetected); Astrovirus Not Detected (NotDetected); Campylobacter Not Detected (NotDetected); Clostridium Difficile A/B, PCR Not Detected (NotDetected); Cryptosporidium Not Detected (NotDetected); Cyclospora Cayetanesis Not Detected (NotDetected); Entamoeba histolytica Not Detected (NotDetected); Enteroaggregative E coli Not Detected (NotDetected); Enteropathogenic E coli Not Detected (NotDetected); Enterotoxigenic E coli Not Detected (NotDetected); Giardia lamblia Not Detected (NotDetected); Norovirus Not Detected (NotDetected); Plesimonas Shigalloides, PCR Not Detected (NotDetected); Rotavirus A Not Detected (NotDetected); Salmonella, PCR Not Detected (NotDetected); Sapovirus Not Detected (NotDetected); Shiga-like toxin E coli Not Detected (NotDetected); Shigella Enterovasive E coli Not Detected (NotDetected); Vibrio Cholerae Not Detected (NotDetected); Vibrio, PCR Not Detected (NotDetected); Yersinia Entercolitica, PCR Not Detected (NotDetected)
== END ==
PROVIDERS: PCP Internal Medicine; Visit Provider Internal Medicine
DX: K52.9 Noninfective gastroenteritis and colitis, unspecified (principal)
CPT/HCPCS: 87045; 87507

== ENCOUNTER 2025-01-28 17:02 | Emergency (ER) | payer BC, SELFPAY ==
--- OUTSIDE RECORDS SUMMARY | 2025-01-28 17:10 | XMS_ITS | Clinical Summary ---
Author Organization [facility] Address [address] [place] [id number] Phone [email or web address] Team Providers Care Oracle Fusion Consultant Name Role Phone Provider, No Primary Care Provider Unavailabl e Allergies Active Allergy Reactions Criticality Noted Date Comments Penicillins Rash Low 07/27/2020 Medications No known medications Active Problems No known active problems Social History Tobacco Use Types Packs/Day Years Used Date Smoking Tobacco: Former Smokeless Tobacco: Current Chew Tobacco Cessation:Ready to Q uit: Not Asked; Counseling Given: Not Answered Intimate Partner Violence Answer Date R ecorded Insults You Not on file 12/04/2020 Threatens You Not on file 12/04/2020 Screams at You Not on file 12/04/2020 Physically Hurt Not on file 12/04/2020 Intimate Partner Violence Score Not on file 12/04/2020 Depression Answer Date Recorded PHQ Total Score Not on file 01/31/2022 Stress Answer Date Recorded Stress in your Life Not on file 06/25/2024 Dealing with Stress 3 06/25/2024 Sex and Gender Information Value Date Recorded Sex Assigned at Not on file Legal Sex Male 7:31 AM CDT Gender Identity Not on file Sexual Orientation Not on file Last Filed Vital Signs Vital Sign Reading Time Taken Comments Blood Pressure 164/103 06/06/2023 2:09 PM EDT Pulse 97 06/06/2023 2:09 PM EDT Temperature 36.5 C (97.7 F) 06/06/2023 2:09 PM EDT Respiratory Rate 14 06/06/2023 2:09 PM EDT Oxygen Saturation 98% 06/06/2023 2:09 PM EDT Inhaled Oxygen Concentration - - Weight 119 kg (262 lb) 06/06/2023 2:09 PM EDT Height 190.5 cm (6' 3 ) 06/06/2023 2:09 PM EDT Body Mass Index 32.75 06/06/2023 2:09 PM EDT Plan of Treatment Health Maintenance Due Date Last Done Comments Dental Cleaning/Exam 1990 HIV Screening 1990 Hepatitis C Screening 1990 Tetanus Diphtheria and Pertussis Immunization (2 - Tdap) 03/22/2005 03/21/2005 Annual Preventive Exam 2008 Hep B Infection Screening - Triple Screen 2008 Covid-19 Immunization ( season) 2024 Influenza Immunization (Season Ended) 2025 Hepatitis B Immunization Completed 001, 12/06/2000, 10/31/2000 HIB Immunization Aged Out No longer e ligible based on patient's age to complete this topic HPV Immunization Aged Out No longer e ligible based on patient's age to complete this topic Hepatitis A Immunization Aged Out No longer eligible based on patient's age to complete this topic Pneumococcal: Ped (0 to 5 Yrs) and At-Risk Member (6 to 64 Yrs) Aged Out No longer eligible b ased on patient's age to complete this topic Polio Immunization Aged Out No longer eligible based on patient's age to complete this topic Varicella Immunization Aged Out No lo nger eligible based on patient's age to complete this topic Insurance OPT OUT NO COPAY NB Care Teams Oracle Fusion Consultant Relationship Specialty Start Date End Date Provider, [place] [address] PCP - General Avionics Manager 01/29/21
[2025-01-28 17:13] VITALS: BP 163/102; PULSE 88; RESP 18; TEMP 37.1; O2SAT 98; BMI 33.6
--- NOTE | 2025-01-28 17:20 | CT_ITS ---
PROCEDURE INFORMATION: Exam: CT Abdomen And Pelvis With Contrast Exam date and time: 01/28/2025 5:46 PM Age: 34 years old Clinical indication: Abdominal pain; Flank; Right; Additional info: Right flank pain TECHNIQUE: Imaging protocol: Computed tomography of the abdomen and pelvis with contrast. Radiation optimization: All CT scans at this facility use at least one of these dose optimization techniques: automated exposure control; mA and/or kV adjustment per patient size (includes targeted exams where dose is matched to clinical indication); or iterative reconstruction. Contrast material: ISOVUE; Contrast volume: 75 ml; Contrast route: IV; COMPARISON: CT ABDOMEN PELVIS W CON 08/25/2022 8:36 PM FINDINGS: Lungs: Lung bases are clear. Liver: Liver is mildly enlarged with fatty infiltration. Gallbladder and biliary ducts: Normal. No calcified stones. No ductal dilation. Pancreas: Normal. No ductal dilation. Spleen: Spleen is mildly enlarged, unchanged. Few punctate granulomas calcifications redemonstrated. Adrenal glands: Normal. No mass. Kidneys and ureters: Tie affecting right renal stone otherwise kidneys are unremarkable. No calculi or hydronephrosis. Stomach and bowel: Unremarkable. No obstruction. No mucosal thickening. Appendix: No evidence of acute appendicitis. Intraperitoneal space: Unremarkable. No free air. No significant fluid collection. Vasculature: Unremarkable. No abdominal aortic aneurysm. Lymph nodes: Mild-moderate mediastinal lymphadenopathy partially visualized there was present previously. There is also mild-moderate upper abdominal retroperitoneal lymphadenopathy that is developed from prior examination. Urinary bladder: Unremarkable as visualized. Reproductive: Unremarkable as visualized. Bones/joints: Chronic degenerative changes of the lower thoracic spine unchanged. 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 No acute fracture. Soft tissues: Unremarkable. IMPRESSION: 1. Tiny nonobstructing right renal stone otherwise unremarkable CT exam of the kidneys ureters and bladder. 2. Mild-moderate abdominal and retroperitoneal lymphadenopathy developed from previous exam that is further evaluation or follow up for clarification as developing lymphomatous process can not be ruled out. Uses Dragan Tani. 3. Mediastinal lymphadenopathy partially visualized and should be further assessed with dedicated nonemergent CT examination of the chest with contrast 4. Mild hepatomegaly with fatty infiltration unchanged. 5. Mild splenomegaly unchanged. 6. Congenital narrowing of the spinal canal most pronounced at L4-L5 which could be further assessed on MRI exam if clinically warranted.
--- NOTE | 2025-01-28 17:20 | US_ITS ---
PROCEDURE INFORMATION: Exam: US Scrotum Exam date and time: 01/28/2025 5:37 PM Age: 34 years old Clinical indication: Flank pain; Additional info: Torsion, RT flank pain TECHNIQUE: Imaging protocol: Real-time ultrasound of the scrotum and contents with color Doppler and image documentation. COMPARISON: CT ABDOMEN PELVIS W CON 08/25/2022 8:36 PM FINDINGS: Right testicle: Normal. No mass. Normal color Doppler and arterial waveforms. No torsion. Left testicle: Normal. No mass. Normal color Doppler and arterial waveforms. No torsion. Epididymides: Normal. Scrotum/soft tissues: Normal. No hydroceles. Small bilateral varicoceles measuring 3 mm on Valsalva maneuver.. IMPRESSION: Small bilateral varicoceles otherwise unremarkable scrotal ultrasound.
--- NOTE | 2025-01-28 17:27 | PC.NURSE ---
I called radiology and requested they call in US
[2025-01-28 17:30] VITALS: BP 135/88; PULSE 91; O2SAT 95
[2025-01-28] MEDS: KETOROLAC 30MG/ML VIAL 30 MG IV (17:31)
[2025-01-28] MEDS: ONDANSETRON 4MG/2ML VIAL 4 MG IV (17:32)
[2025-01-28] MEDS: 0.9 % SODIUM CHLORIDE 1000ML 1,000 ML 999 ML IV (17:33)
--- NOTE | 2025-01-28 17:40 | ED_ITS ---
<Statement entered by Sarah Jo DO - 01/28/25 19:35> I was consulted by the GISSELLE, and we discussed the complexity of the problems being addressed. I approved the treatment and management plan for this patient's care in the emergency department, thus performing a substantive portion of the medical decision making. Sarah Jo DO Discharge Plan Disposition Patient Disposition: Home, Self-Care Prescriptions Prescriptions: New ketorolac 10 mg tablet 10 mg PO Q8H 5 Days Qty: 15 0RF No Action ramelteon 8 mg tablet 8 mg PO HS PRN (Reason: sleep) Qty: 30 0RF hydroxyzine pamoate [Vistaril] 25 mg capsule 25 mg PO TID PRN (Reason: anxiety) Qty: 30 2RF duloxetine 60 mg capsule,delayed release(DR/EC) See Rx Instructions .ROUTE .COMPLEX Qty: 90 0RF Dose Instruction: Take 1 capsule by mouth once daily Rx Instructions: Take 1 capsule by mouth once daily Referrals Follow up/Referrals: Murphy Telles DO [Primary Care Provider, Family Practice] - See instructions Clinical Impressions Clinical Impression: Kidney stone, Lymphadenopathy Instructions Patient Instructions: DI for Kidney Stones Print Language Print Language: [place] Discharge ED Provider: Sarah Jo General Adult HPI General Chief complaint: PAIN Stated complaint: right pelvic area pain Time Seen by Provider: 01/28/25 17:08 Mode of Arrival: Ambulatory Source of Information: Patient Description of Symptoms (Recalled from ER Triage Doc. by RN): Pt presents with c/o right sided flank pain that radiates down to his lower back x 1 week. Pt states last night the pain started to radiate into his testicle. Pt reports darker urine. Pt has a hx of kidney stones. History of Present Illness HPI narrative: This is a 34-year-old male who presents with complaint of right flank pain that radiates into his right testicle. He has no redness or swelling. He does have right back pain as well. He does have kidney stone history about 10 years ago. Denies fever, chills, vomiting or diarrhea. He does have some nausea. Related Data Previous Rx's ?Medication ?Instructions ?Recorded ramelteon 8 mg tablet 8 mg PO HS PRN sleep #30 tab s 06/08/23 hydroxyzine pamoate 25 mg capsule 25 mg PO TID PRN anx iety #30 caps 06/26/23 (Vistaril) duloxetine 60 mg capsule,delayed See Rx Instructions . Route 09/04/23 release .COMPLEX #90 ea ketorolac 10 mg tablet 10 mg PO Q8H 5 days #15 tabs 01/28/25 Allergies Allergy/AdvReac Type Severity Reaction Status Date / Time Penicillins Allergy Verified 01/15/25 09:28 [facility] Disclaimer: The information contained in this section may have been updated after the patient was seen, as this information can be updated by other users. Medical History (Updated 01/28/25 @ 18:49 by Zeenat Rand (ED), TIME [employer]ION ANALYST) Pharyngitis Borderline blood pressure L1 vertebral fracture Plaque psoriasis Insomnia Surgical History (Updated 01/15/25 @ 09:30 by Latonia Nixon MA) History of tonsillectomy Family History (Updated 01/15/25 @ 09:31 by Latonia Nixon MA) Family/Other No significant family history Social History Smoking Status: Never smoker alcohol intake: never current occupational status: other Travel in the last 8 weeks?: None housing: house Have you lived/traveled outside [place] in past 30 days?: No Contact w/someone who lives/traveled outside US past 30 days?: No Exposure to someone with infectious disease in past 14 days?: No Do you have a fever (greater than 100.4 F or 38 C)?: No Have you tested positive for COVID-19?: No Exposed to someone with COVID-19 in past 14 days?: No Do you have a sore throat?: No Do you have a cough?: No Do you have any weakness?: No Do you have any diarrhea?: No Are you experiencing any unusual bleeding?: No Do you have any muscle aches/pain?: No Do you have any abdominal pain?: No Are you experiencing loss of taste or smell?: No Other Medical History Have you received the Flu Vaccine for this season: No Have you received the Pneumonia Vaccine: No ROS Obtained: Yes Systems reviewed as appropriate & no additional complaints except as documented Constitutional Constitutional: Reports as per HPI Physical Exam General General appearance: alert and in no apparent distress Head Head exam: atraumatic and normocephalic Eye Eye exam: Present PERRL and EOMI ENT ENT exam: Present normal oropharynx and mucous membranes moist Neck Neck exam: Present full ROM and trachea midline Respiratory Respiratory exam: Present normal lung sounds bilaterally Cardiovascular Cardiovascular exam: Present regular rate, normal rhythm, normal heart sounds, +S1 and +S2 Abdominal Exam Abdominal exam: Present soft and normal bowel sounds Abdominal tenderness: Present suprapubic exam: Present testicular tenderness Extremities Exam Extremities exam: Present normal inspection, full ROM and normal capillary refill Back Exam Back exam: Present CVA tenderness (R) Neurological Exam Neurological exam: Present alert, oriented X3 and normal gait Skin Skin exam: Present warm, dry and intact Medical Decision Making Medical Records Screening: Per USPSTF and CDC recommendations, given the prevalence of disease in our region, it is our hospital?s policy to screen for HIV and viral Hepatitis for all patients aged 18 and over and those with ongoing risk factors. Allen Inquiry Pt receiving controlled substance: No Allen was queried for this patient: No Vital Signs: 01/28/25 17:13 01/28/25 17:30 Temperature 98.7 F Temperature Source Oral Pulse Rate 91 H Pulse Rate [Right] 88 Respiratory Rate 18 Blood Pressure 135/88 Blood Pressure [Right Arm] 163/102 H Blood Pressure Mean [Right Arm] 122 Blood Pressure Source [Right Arm] Automatic Cuff Blood Pressure Position [Right Arm] Sitting 02 Sat by Pulse Oximetry 98 95 Oxygen Delivery Method Room Air Lab Data Lab Results 01/28/25 17:15: WBC 7.6, RBC 5.70, Hgb 15.5, Hct 46.9, MCV 82.3, MCH 27.2, MCHC 33.0, RDW 13.2, Plt Count 197, MPV 9.0, Neut % (Auto) 72.8, Lymph % (Auto) 17.2, [place] % (Auto) 7.0, Eos % (Auto) 2.1, Baso % (Auto) 0.4, Neut # (Auto) 5.5, Lymph # (Auto) 1.3, [place] # (Auto) 0.5, Eos # (Auto) 0.2, Baso # (Auto) 0.0, Sodium 137, Potassium 3.7, Chloride 103, Carbon Dioxide 27, Anion Gap 10.7, BUN 15, Creatinine 1.00, Estimated Creat Clear 180, Estimated GFR 86, Est GFR ( Amer) 103, Glucose 145 H, Calcium 10.1, Magnesium 1.7, Total Bilirubin 0.8, AST 49, ALT 53, Alkaline Phosphatase 86, Total Protein 8.0, Albumin 4.7, Globulin 3.3 H, Albumin/Globulin Ratio 1.4, Lipase 90 01/28/25 18:08: Urine Color Yellow, Urine Appearance Clear, Urine pH 6.0, Ur Specific [place] 1.020, Urine Protein Negative, Urine Glucose (UA) Negative, Urine Ketones Negative, Urine Blood Negative, Urine Nitrate Negative, Urine Bilirubin Negative, Urine Urobilinogen 0.2, Ur Leukocyte Esterase Negative, Urine RBC 3-5, Urine WBC 5-10, Ur Squamous Epith Cells Occasional, Urine Bacteria Trace, Urine Mucus 2+ 01/28/25 17:15 01/28/25 17:15 Orders (Tests/Meds): ED MEDICATIONS Generic Name Dose Route Start Last Admin Trade Name Freq PRN Reason Stop Dose Admin Sodium Chloride 10 ml 01/28/25 17:46 01/28/25 17:48 Sodium Chloride 0.9% 10ml Syr (Rad Only) IV 02/27/25 17:45 10 ml NEEDED PRN Administration Maintain IV Site Discontinued Medications Generic Name Dose Route Start Last Admin Trade Name Freq PRN Reason Stop Dose Admin Sodium Chloride 1,000 mls @ 999 mls/hr 01/28/25 17:20 01/28/25 17:33 Sod Chlor 0.9% 1000ml Bag IV 01/28/25 18:20 999 mls/hr .Q1H1M ONE Administration Iopamidol 75 ml 01/28/25 17:46 01/28/25 17:47 Iopamidol-370 (76%);100ml Bottle IV 01/28/25 17:47 75 ml ONCE ONE Administration Ketorolac Tromethamine 30 mg 01/28/25 17:20 01/28/25 17:31 Ketorolac 30mg/Ml Vial IV 01/28/25 17:21 30 mg ONCE ONE Administration Ondansetron HCl 4 mg 01/28/25 17:20 01/28/25 17:32 Ondansetron 4mg/2ml Vial IV 01/28/25 17:21 4 mg ONCE ONE Administration ORDERS Category Date Time Status CT abdomen pelvis w con Stat Cat Scan 01/28/25 17:20 Completed CBC [Complete Blood Count Auto Diff] Stat Lab 01/28/25 17:15 Completed Comprehensive Metabolic Panel Stat Lab 01/28/25 17:15 Completed Lipase Stat Lab 01/28/25 17:15 Completed Magnesium Stat Lab 01/28/25 17:15 Completed Urinalysis and Microscopic Stat Lab 01/28/25 18:08 Completed Urine Culture Stat Micro 01/28/25 18:40 Received US Testicular Stat Ultrasound 01/28/25 17:20 Completed Medical Decision Narrative: patient is a 34-year-old male presenting to the emergency department for evaluation of right flank pain, right testicular pain. Patient is hemodynamically stable and nontoxic-appearing upon arrival, afebrile. Differential diagnosis includes testicular torsion, kidney stone, among others. Workup will be conducted with hematologic labs, specific imaging. Initial inventions include crystalloid bolus, analgesics. Initial workup reviewed by me hematologic labs are remarkable for nothing acute. Ultrasound was completed of bilateral testicles gis mapping technician says told me that she had flow on both sides. Imaging informally interpreted by me and remarkable for nothing acute. Formal imaging read remarkable for nonobstructing kidney stones, lymphadenopathy, please see formal report for the rest of the read patient and I discussed the CT scan results. I want patient to follow-up with his PCP for the lymphadenopathy. We discussed the nonobstructing kidney stones. We also discussed the urine having some bacteria. Since he is having some difficulty with urination we will treat the bacteria with an antibiotic and then see what the culture says. Patient is safe for discharge home with return precautions and follow-up.. Upon repeat evaluation patient's pain is improved. Critical Care Critical Care Time Critical Care Time: No
[2025-01-28 17:41] LABS: Basophils % 0.4 % (0.1-2.0); Eosinophils # 0.2 Kmm3 (0.0-0.4); Eosinophils % 2.1 % (0.1-12.0); Hematocrit 46.9 % (42.0-52.0); Hemoglobin 15.5 g/dL (14.1-18.0); Immature Granulocytes # 0.04 10^3uL; Immature Granulocytes % 0.5 %; Lymphocytes # 1.3 K/mm3 (0.7-4.5); Lymphocytes % 17.2 % (10-50); Mean Corpuscular Hemoglobin 27.2 pg (27.0-31.2); Mean Corpuscular Volume 82.3 fl (80-94); Monocytes # 0.5 K/mm3 (0.1-1.0); Neutrophils # 5.5 K/mm3 (1.8-7.8); Neutrophils % 72.8 % (37.0-80.0); Nucleated Red Blood Cells # 0 10^3/uL; Nucleated Red Blood Cells % 0 %; Platelet Count 197 K/mm3 (142-424); Red Cell Distribution Width 13.2 % (11.5-17.5); Red Cell Distribution Width-SD 39.2 fL; White Blood Count 7.6 K/mm3 (4.8-10.8)
[2025-01-28 17:47] LABS: Alanine Aminotransferase 53 U/L (12-78); Albumin Level 4.7 g/dl (3.5-5.0); Albumin/Globulin Ratio 1.4 (1.1-1.8); Alkaline Phosphatase 86 U/L (38-126); Anion Gap 10.7 mEq/L (5-15); Aspartate Amino Transferase 49 U/L (17-59); Bilirubin,Total 0.8 mg/dl (0.2-1.3); Blood Urea Nitrogen 15 mg/dl (9-20); Calcium 10.1 mg/dl (8.4-10.2); Carbon Dioxide 27 mmol/L (22.0-30.0); Chloride 103 mmol/L (98-107); Creatinine Clearance Estimated 180 mL/min (50-200); Estimated Glomerular Filt Rate 86 ml/min (>60); GFR (African American) 103 ML/MIN (>60); Globulin 3.3 g/dL (1.3-3.2); Glucose 145 mg/dl (74-100); Lipase 90 U/L (23-300); Magnesium 1.7 mg/dl (1.6-2.3); Potassium 3.7 mmoL/L (3.5-5.1); Sodium 137 mmol/L (136-145)
[2025-01-28] MEDS: IOPAMIDOL-370 (76%);100ML BOTTLE 75 ML IV (17:47)
[2025-01-28] MEDS: SODIUM CHLORIDE 0.9% 10ML SYR (RAD ONLY) 10 ML IV (17:48)
[2025-01-28 18:11] LABS: Appearance,Urine CLEAR (Clear); Bilirubin,Urine Negative (Negative); Blood, Urine Negative (Negative); Color,Urine YELLOW (Yellow); Glucose,Urine (UA) Negative (Negative); Ketones,Urine Negative (Negative); Leukocyte Esterase,Urine Negative (Negative); Microscopic, Urine URINE MICROSCOPIC (MICROSCOPIC); Nitrate,Urine Negative (Negative); Protein,Urine Negative (Negative); Urobilinogen,Urine 0.2 EU/dl (0.2)
[2025-01-28 18:31] LABS: Squamous Epithelial Cell,Urine Occasional #/hpf (0-5)
[2025-01-28 18:32] LABS: Bacteria,Urine Trace /lpf; Mucus,Urine 2+ /lpf
[2025-01-28 18:55] VITALS: BP 135/88; PULSE 86; RESP 18; TEMP 37; O2SAT 96
--- NOTE | 2025-01-31 09:05 | PC.NURSE ---
Urine culture results reviewed by Dr. Holly. No new orders received.
== END 2025-01-28 18:57 | disposition home or self-care (01) ==
PROVIDERS: Nurse Practitioner; Emergency Provider Emergency Medicine; PCP Internal Medicine
DX: N20.0 Calculus of kidney (principal); R10.31 Right lower quadrant pain; R59.0 Localized enlarged lymph nodes
CPT/HCPCS: 74177; 76870; 80053; 81001; 83690; 83735; 85025; 87086; 96361; 96374; 96375; 99284; J1885; J2405; J7030; Q9967

== ENCOUNTER 2025-07-09 05:14 | Emergency (ER) | payer OTHER, SELFPAY ==
[2025-07-09] VITALS (9 sets, daily range): BP systolic 126–144; BP diastolic 73–82; PULSE 78–103; RESP 11–25; TEMP 36.8–36.9; O2SAT 96–99; BMI 30.6
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
[2025-07-09] MEDS: IBUPROFEN 600 MG TABLET PO (05:29)
[2025-07-09] MEDS: ACETAMINOPHEN 500MG TAB 1000 MG PO (05:29)
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
[2025-07-09 05:38] LABS: Albumin Level 4.7 g/dl (3.5-5.0); Chloride 101 mmol/L (98-107); Potassium 4.0 mmoL/L (3.5-5.1); Sodium 141 mmol/L (136-145)
[2025-07-09 05:41] LABS: Alanine Aminotransferase 36 U/L (12-78); Albumin/Globulin Ratio 1.2 (1.1-1.8); Alkaline Phosphatase 84 U/L (38-126); Anion Gap 17.0 mEq/L (5-15); Aspartate Amino Transferase 44 U/L (17-59); Bilirubin,Total 0.5 mg/dl (0.2-1.3); Blood Urea Nitrogen 26 mg/dl (9-20); Calcium 8.9 mg/dl (8.4-10.2); Carbon Dioxide 27 mmol/L (22.0-30.0); Creatinine Clearance Estimated 162 mL/min (50-200); Creatinine,Serum 1.00 mg/dl (0.66-1.25); Estimated Glomerular Filt Rate 85 ml/min (>60); GFR (African American) 103 ML/MIN (>60); Globulin 3.8 g/dL (1.3-3.2); Glucose 130 mg/dl (74-100); Lipase 262 U/L (23-300); Total Protein,Serum 8.5 g/dl (6.3-8.2)
--- NOTE | 2025-07-09 05:46 | PC.NURSE ---
2nd PIV not indicated per MD instruction
--- NOTE | 2025-07-09 05:48 | PC.NURSE ---
Pt to CT with appropriate staffing and monitoring as indicated at 0538
[2025-07-09 05:55] LABS: Hematocrit 48.7 % (42.0-52.0); Hemoglobin 15.8 g/dL (14.1-18.0); Immature Granulocytes % 0.8 %; Mean Corpuscular HGB Conc 32.4 g/dL (31.8-35.4); Mean Corpuscular Hemoglobin 27.2 pg (27.0-31.2); Mean Corpuscular Volume 84.0 fl (80-94); Nucleated Red Blood Cells % 0 %; Platelet Count 189 K/mm3 (142-424); Red Blood Count 5.80 M/mm3 (4.60-6.20); Red Cell Distribution Width-SD 39.3 fL; White Blood Count 6.0 K/mm3 (4.8-10.8)
--- NOTE | 2025-07-09 05:55 | PC.NURSE ---
pt returns back to room safely from CT. plan of care ongoing. C-collar remains on pt.
[2025-07-09 05:56] LABS: Troponin I < 0.01 ng/ml (0.00-0.034)
[2025-07-09] MEDS: 0.9 % SODIUM CHLORIDE 50 ML VIAL IV (05:59)
[2025-07-09] MEDS: SODIUM CHLORIDE 0.9% 10ML SYR (RAD ONLY) 10 ML IV (05:59)
[2025-07-09] MEDS: IOPAMIDOL-370 (76%);100ML BOTTLE 160 ML IV (05:59)
--- NOTE | 2025-07-09 06:00 | ECG_ITS ---
APPROVED REPORT Exam: Resting ECG HR:84 bpm ECG Measurements Heart Rate 84 AXES DC 192 P 68 QRSd 108 QRS 118 QT 358 T 55 QTc 399 Conclusion SINUS RHYTHM POSSIBLE RIGHT VENTRICULAR HYPERTROPHY [SOME/ALL OF: PROMINENT R IN V1, LATE TRANSITION, RAD, BENJAMIN, SSS] No STEMI Electronically signed by : ALEXSANDRA SCOTT, 07/10/2025 02:06:21
[2025-07-09 06:06] LABS: Activated Partial Thrombo Time 27.4 seconds (22.8-30.6); INR 1.00 (0.9-1.1); Prothrombin Time 11.1 seconds (10.1-12.5)
[2025-07-09 06:10] LABS: Microscopic, Urine URINE MICROSCOPIC (MICROSCOPIC)
[2025-07-09 06:11] LABS: Bilirubin,Urine Negative (Negative); Color,Urine YELLOW (Yellow); Glucose,Urine (UA) Negative (Negative); Ketones,Urine Negative (Negative); Leukocyte Esterase,Urine Negative (Negative); PH,Urine 6.0 (5.0-8.5); Protein,Urine Negative (Negative); Specific Gravity, Urine 1.010 (1.005-1.030); Urobilinogen,Urine 0.2 EU/dl (0.2)
[2025-07-09] MEDS: ONDANSETRON 4MG/2ML VIAL 4 MG IV (06:24)
[2025-07-09] MEDS: OXYCODONE 5MG IMMEDIATE RELEASE TABLET 5 MG PO (06:24)
[2025-07-09] MEDS: METHOCARBAMOL 500MG TABLET 500 MG PO (06:24)
--- NOTE | 2025-07-09 06:39 | PC.NURSE ---
cleared c-spine and took off c-collar at 0625
[2025-07-09 08:24] LABS: Hepatitis C Ab Qual. W/ RFX NEGATIVE (Negative)
== END 2025-07-09 06:41 | disposition home or self-care (01) ==
PROVIDERS: Emergency Provider Emergency Medicine; PCP Internal Medicine
DX: M25.512 Pain in left shoulder (principal); S00.81XA Abrasion of other part of head, initial encounter; R51.9 Headache, unspecified; R59.1 Generalized enlarged lymph nodes; V49.40XA Driver injured in collision with unspecified motor vehicles in traffic accident, initial encounter
CPT/HCPCS: 70450; 70496; 70498; 71045; 71275; 72125; 72170; 73030; 74174; 80053; 81001; 83690; 84484; 85025; 85610; 85730; 86803; 87389; 93005; 96374; 99285; J2405; Q9967